=== PATIENT | female | born 1945 | race Caucasian/White ===

== ENCOUNTER 2021-07-09 12:58 | Inpatient (IN) | payer MEDICARE ==
[2021-07-09] VITALS (10 sets, daily range): BP systolic 98–140; BP diastolic 48–77
[~2021-07-09] VITALS: Ht 170.2 cm; Wt 51.9 kg
[~2021-07-09 12:58] MED LIST: ASPIRIN325 MG PO; GABAPENTIN300 MG PO; MELOXICAM7.5 MG PO; PRAVASTATIN SOD10 MG PO; ULTRAM50 MG PO
[2021-07-09] MEDS ORDERED: ONDANSETRON HCL INJ 2MG/ML 2ML 2 MG/ML VIAL IV PRN (17:00)
[2021-07-09] MEDS ORDERED: ZOLPIDEM TARTRATE 5 MG TAB PO PRN (17:00)
[2021-07-09 19:26] LABS: BASOPHILS # (AUTO) 0.1 (0.0-0.1); BASOPHILS % 0.8 % (0.0-1.0); EOSINOPHILS # (AUTO) 0.4 (0.0-0.4); EOSINOPHILS % 4.2 % (0.0-6.0); HEMATOCRIT 38.4 % (34.2-44.1); HEMOGLOBIN 12.7 g/dL (12.0-16.0); LYMPHOCYTES # (AUTO) 2.3 (1.0-3.2); LYMPHOCYTES % 23.5 % (18.0-39.1); MEAN CORPUSCULAR HEMOGLOBIN 30.8 pg (28-32); MEAN CORPUSCULAR HGB CONC 33.1 g/dL (31-35); MONOCYTES # (AUTO) 0.9 (0.2-0.8); MONOCYTES % 9.3 % (4.4-11.3); NEUTROPHILS # (AUTO) 6.2 (2.1-6.9); NEUTROPHILS % 61.8 % (38.7-80.0); PLATELET COUNT 261 x10e3/uL (140-360); RED BLOOD COUNT 4.13 x10e6/uL (3.6-5.1); RED CELL DISTRIBUTION WIDTH 12.5 % (11.7-14.4)
[2021-07-09] MEDS: APIXABAN 5 MG TABLET PO SCH (19:52)
[2021-07-09] MEDS: ACETAMINOPHEN 325 MG TAB PO PRN (19:53)
[2021-07-09 19:54] LABS: ALBUMIN/GLOBULIN RATIO 0.9 (0.8-2.0); ANION GAP 13.2 mmol/L (8-16); CALCIUM 8.6 mg/dL (8.4-10.2); CREATININE, SERUM 0.77 mg/dL (0.57-1.11); POTASSIUM 4.2 mmol/L (3.5-5.1)
[2021-07-09] MEDS: ATORVASTATIN 40 MG TAB PO SCH (20:19)
[2021-07-09] MEDS: HYDROCODONE/APAP 10MG-325MG TAB PO PRN (22:00)
[2021-07-09] MEDS: ALBUTEROL SULF 0.083% NEB SOLN 3 ML NEB NEB SCH (23:00)
[2021-07-09] MEDS: BUDESONIDE/FORMOTEROL 160/4.5MCG INHALER INH SCH (23:00)
[2021-07-10] VITALS (11 sets, daily range): BP systolic 80–127; BP diastolic 49–77
[2021-07-10] MEDS: HYDROCODONE/APAP 10MG-325MG TAB PO PRN ×4 (03:57→23:38)
[2021-07-10] MEDS: ALBUTEROL SULF 0.083% NEB SOLN 3 ML NEB NEB SCH ×3 (07:30→19:00)
[2021-07-10] MEDS: BUDESONIDE/FORMOTEROL 160/4.5MCG INHALER INH SCH ×2 (07:45→19:00)
[2021-07-10] MEDS: APIXABAN 5 MG TABLET PO SCH ×2 (09:41→18:27)
[2021-07-10] MEDS: ATORVASTATIN 40 MG TAB PO SCH (20:05)
[2021-07-11] VITALS (7 sets, daily range): BP systolic 93–141; BP diastolic 50–73
[2021-07-11] MEDS: ALBUTEROL SULF 0.083% NEB SOLN 3 ML NEB NEB SCH ×4 (01:00→19:00)
[2021-07-11] MEDS: HYDROCODONE/APAP 10MG-325MG TAB PO PRN ×3 (03:50→18:49)
[2021-07-11] MEDS: BUDESONIDE/FORMOTEROL 160/4.5MCG INHALER INH SCH ×2 (07:30→19:00)
[2021-07-11] MEDS ORDERED: METHOCARBAMOL 500 MG TAB PO ONE (09:15)
[2021-07-11] MEDS: APIXABAN 5 MG TABLET PO SCH ×2 (09:29→17:03)
[2021-07-11] MEDS: CELECOXIB 100 MG CAP PO SCH ×2 (10:45→17:03)
[2021-07-11] MEDS: PREDNISONE 10 MG TAB PO SCH ×2 (10:45→17:03)
[2021-07-11] MEDS: GABAPENTIN 100 MG CAP PO SCH ×2 (15:08→21:00)
[2021-07-11] MEDS: LIDOCAINE 4% PATCH TP SCH (15:08)
[2021-07-11] MEDS: ACETAMINOPHEN 325 MG TAB PO PRN (15:09)
[2021-07-11] MEDS: SENNA-S TABLET PO SCH (17:03)
[2021-07-11] MEDS: MIRTAZAPINE 15 MG TAB PO SCH (19:31)
[2021-07-11] MEDS ORDERED: ZOLPIDEM TARTRATE 5 MG TAB PO PRN (19:45)
[2021-07-11] MEDS: ATORVASTATIN 40 MG TAB PO SCH (21:00)
[2021-07-12] VITALS (13 sets, daily range): BP systolic 90–148; BP diastolic 44–75
[2021-07-12] MEDS: ALBUTEROL SULF 0.083% NEB SOLN 3 ML NEB NEB SCH ×4 (01:00→19:45)
[2021-07-12] MEDS: HYDROCODONE/APAP 10MG-325MG TAB PO PRN ×3 (03:42→15:58)
[2021-07-12] MEDS: BUDESONIDE/FORMOTEROL 160/4.5MCG INHALER INH SCH ×2 (07:00→19:45)
[2021-07-12] MEDS: GABAPENTIN 100 MG CAP PO SCH ×3 (08:28→19:55)
[2021-07-12] MEDS: CELECOXIB 100 MG CAP PO SCH ×2 (08:28→16:19)
[2021-07-12] MEDS: PREDNISONE 10 MG TAB PO SCH ×2 (08:28→16:19)
[2021-07-12] MEDS: APIXABAN 5 MG TABLET PO SCH ×2 (08:28→16:19)
[2021-07-12] MEDS: LIDOCAINE 4% PATCH TP SCH (08:29)
[2021-07-12] MEDS: SENNA-S TABLET PO SCH ×2 (08:29→16:19)
[2021-07-12] MEDS: MIDODRINE 2.5 MG TAB PO SCH ×3 (10:10→15:41)
[2021-07-12] MEDS: MIRTAZAPINE 15 MG TAB PO SCH (19:55)
[2021-07-12] MEDS: ATORVASTATIN 40 MG TAB PO SCH (19:55)
[2021-07-13] VITALS (9 sets, daily range): BP systolic 104–132; BP diastolic 52–85
[2021-07-13] MEDS: ALBUTEROL SULF 0.083% NEB SOLN 3 ML NEB NEB SCH ×4 (02:20→19:05)
[2021-07-13 05:04] LABS: BASOPHILS % 0.3 % (0.0-1.0); EOSINOPHILS # (AUTO) 0.1 (0.0-0.4); EOSINOPHILS % 0.4 % (0.0-6.0); HEMATOCRIT 36.3 % (34.2-44.1); HEMOGLOBIN 11.9 g/dL (12.0-16.0); LYMPHOCYTES # (AUTO) 2.5 (1.0-3.2); LYMPHOCYTES % 18.5 % (18.0-39.1); MEAN CORPUSCULAR HEMOGLOBIN 30.8 pg (28-32); MEAN CORPUSCULAR HGB CONC 32.8 g/dL (31-35); MONOCYTES # (AUTO) 1.1 (0.2-0.8); MONOCYTES % 8.2 % (4.4-11.3); NEUTROPHILS # (AUTO) 9.8 (2.1-6.9); NEUTROPHILS % 72.1 % (38.7-80.0); PLATELET COUNT 398 x10e3/uL (140-360); RED BLOOD COUNT 3.86 x10e6/uL (3.6-5.1); RED CELL DISTRIBUTION WIDTH 13.3 % (11.7-14.4)
[2021-07-13 05:49] LABS: ANION GAP 13.9 mmol/L (8-16); CALCIUM 8.3 mg/dL (8.4-10.2); CREATININE, SERUM 0.78 mg/dL (0.57-1.11); POTASSIUM 3.9 mmol/L (3.5-5.1)
[2021-07-13 06:38] LABS: THYROID STIMULATING HORMONE 1.089 uIU/mL (0.350-4.940)
[2021-07-13] MEDS: BUDESONIDE/FORMOTEROL 160/4.5MCG INHALER INH SCH ×2 (06:50→19:20)
[2021-07-13] MEDS: CELECOXIB 100 MG CAP PO SCH ×2 (08:20→16:21)
[2021-07-13] MEDS: GABAPENTIN 100 MG CAP PO SCH ×3 (08:21→20:55)
[2021-07-13] MEDS: APIXABAN 5 MG TABLET PO SCH ×2 (08:21→16:21)
[2021-07-13] MEDS: SENNA-S TABLET PO SCH ×2 (08:21→16:21)
[2021-07-13] MEDS: PREDNISONE 10 MG TAB PO SCH ×2 (08:21→16:21)
[2021-07-13] MEDS: MIDODRINE 2.5 MG TAB PO SCH ×3 (08:21→15:12)
[2021-07-13] MEDS: LIDOCAINE 4% PATCH TP SCH (08:21)
[2021-07-13] MEDS: HYDROCODONE/APAP 10MG-325MG TAB PO PRN ×2 (08:25→15:15)
[2021-07-13] MEDS: ATORVASTATIN 40 MG TAB PO SCH (20:55)
[2021-07-13] MEDS: MIRTAZAPINE 15 MG TAB PO SCH (20:55)
[2021-07-14] VITALS (7 sets, daily range): BP systolic 102–122; BP diastolic 47–57
[2021-07-14] MEDS: ALBUTEROL SULF 0.083% NEB SOLN 3 ML NEB NEB SCH ×4 (01:00→19:10)
[2021-07-14] MEDS: BUDESONIDE/FORMOTEROL 160/4.5MCG INHALER INH SCH ×2 (07:00→19:20)
[2021-07-14] MEDS: MIDODRINE 2.5 MG TAB PO SCH ×3 (08:00→17:00)
[2021-07-14] MEDS: CELECOXIB 100 MG CAP PO SCH ×2 (08:00→17:00)
[2021-07-14] MEDS: HYDROCODONE/APAP 10MG-325MG TAB PO PRN ×2 (08:27→08:30)
[2021-07-14] MEDS: LIDOCAINE 4% PATCH TP SCH (09:00)
[2021-07-14] MEDS: SENNA-S TABLET PO SCH ×2 (09:00→17:00)
[2021-07-14] MEDS: APIXABAN 5 MG TABLET PO SCH ×2 (09:00→17:00)
[2021-07-14] MEDS: GABAPENTIN 300 MG CAP PO SCH ×3 (10:00→20:41)
[2021-07-14] MEDS: PREDNISONE 20 MG TAB PO SCH ×2 (10:00→17:00)
[2021-07-14] MEDS ORDERED: MIRTAZAPINE 15 MG TAB PO SCH (20:00)
[2021-07-14] MEDS: ATORVASTATIN 40 MG TAB PO SCH (20:41)
[2021-07-15] MEDS: ALBUTEROL SULF 0.083% NEB SOLN 3 ML NEB NEB SCH ×3 (01:00→12:47)
[2021-07-15 05:17] VITALS: BP 130/69
[2021-07-15 05:21] LABS: BASOPHILS % 0.2 % (0.0-1.0); HEMATOCRIT 38.9 % (34.2-44.1); HEMOGLOBIN 12.2 g/dL (12.0-16.0); LYMPHOCYTES % 15.8 % (18.0-39.1); MEAN CORPUSCULAR HEMOGLOBIN 31.2 pg (28-32); MEAN CORPUSCULAR HGB CONC 31.4 g/dL (31-35); MEAN CORPUSCULAR VOLUME 99.5 fL (81-99); MONOCYTES # (AUTO) 0.6 (0.2-0.8); MONOCYTES % 4.9 % (4.4-11.3); NEUTROPHILS % 78.2 % (38.7-80.0); PLATELET COUNT 368 x10e3/uL (140-360); RED BLOOD COUNT 3.91 x10e6/uL (3.6-5.1); RED CELL DISTRIBUTION WIDTH 13.4 % (11.7-14.4)
[2021-07-15] MEDS: HYDROCODONE/APAP 10MG-325MG TAB PO PRN (05:25)
[2021-07-15] MEDS: BUDESONIDE/FORMOTEROL 160/4.5MCG INHALER INH SCH (07:00)
[2021-07-15 07:13] LABS: ANION GAP 13.5 mmol/L (8-16); CALCIUM 8.5 mg/dL (8.4-10.2); CREATININE, SERUM 0.77 mg/dL (0.57-1.11); POTASSIUM 4.5 mmol/L (3.5-5.1)
[2021-07-15 08:00] VITALS: BP 118/86
[2021-07-15] MEDS: MIDODRINE 2.5 MG TAB PO SCH ×2 (08:00→12:17)
[2021-07-15] MEDS: CELECOXIB 100 MG CAP PO SCH (08:00)
[2021-07-15] MEDS: APIXABAN 5 MG TABLET PO SCH (08:42)
[2021-07-15] MEDS: GABAPENTIN 300 MG CAP PO SCH (08:42)
[2021-07-15] MEDS: SENNA-S TABLET PO SCH (08:43)
[2021-07-15] MEDS: PREDNISONE 20 MG TAB PO SCH (08:43)
[2021-07-15 08:49] VITALS: BP 118/86
[2021-07-15] MEDS: LIDOCAINE 4% PATCH TP SCH (09:00)
[2021-07-15 12:47] VITALS: BP 126/50
== END 2021-07-15 13:05 | disposition home or self-care (01) | DRG 65 ==
LOC: ICU 15:02 → MED/SURG 07-13 15:52
PROVIDERS: ADMIT Internal Medicine; ATTEND Internal Medicine
DX: I63.511 Cerebral infarction due to unspecified occlusion or stenosis of right middle cerebral artery (principal); G81.94 Hemiplegia, unspecified affecting left nondominant side; Z68.1 Body mass index [BMI] 19.9 or less, adult; E44.0 Moderate protein-calorie malnutrition; J44.9 Chronic obstructive pulmonary disease, unspecified; I10 Essential (primary) hypertension; I48.0 Paroxysmal atrial fibrillation; I69.398 Other sequelae of cerebral infarction; G93.89 Other specified disorders of brain; M47.816 Spondylosis without myelopathy or radiculopathy, lumbar region; M16.0 Bilateral primary osteoarthritis of hip; S76.012A Strain of muscle, fascia and tendon of left hip, initial encounter; I65.22 Occlusion and stenosis of left carotid artery; R13.10 Dysphagia, unspecified; R63.0 Anorexia; M16.12 Unilateral primary osteoarthritis, left hip; Z87.891 Personal history of nicotine dependence; Z92.82 Status post administration of tPA (rtPA) in a different facility within the last 24 hours prior to admission to current facility; Z74.09 Other reduced mobility; Z20.822 Contact with and (suspected) exposure to COVID-19; M51.36 Other intervertebral disc degeneration, lumbar region
CPT/HCPCS: 36415; 71045; 72148; 80048; 80053; 82607; 82746; 83036; 83735; 83970; 84443; 85025; 93005; 93306; 93880; 94664; 94799; 97139; J7512; U0002

== ENCOUNTER 2024-02-28 16:08 | Emergency (ER) | payer MEDICARE ==
[~2024-02-28] VITALS: Ht 172.7 cm; Wt 47.6 kg
[~2024-02-28 16:08] MED LIST changes: +ULTRAM 50MG50 MG PO
[2024-02-28 18:32] VITALS: PULSE 74; RESP 16; TEMP 97.5; O2SAT 96
== END 2024-02-28 18:32 | disposition home or self-care (01) ==
LOC: FSED 16:33
DX: S00.81XA Abrasion of other part of head, initial encounter (principal); S02.2XXA Fracture of nasal bones, initial encounter for closed fracture; W01.0XXA Fall on same level from slipping, tripping and stumbling without subsequent striking against object, initial encounter; Y93.01 Activity, walking, marching and hiking; Y92.89 Other specified places as the place of occurrence of the external cause; F03.90 Unspecified dementia, unspecified severity, without behavioral disturbance, psychotic disturbance, mood disturbance, and anxiety; D68.9 Coagulation defect, unspecified; Z89.612 Acquired absence of left leg above knee; J44.9 Chronic obstructive pulmonary disease, unspecified; E78.5 Hyperlipidemia, unspecified; I48.91 Unspecified atrial fibrillation; Z86.73 Personal history of transient ischemic attack (TIA), and cerebral infarction without residual deficits
CPT/HCPCS: 70450; 70486; 72125; 99283